=== PATIENT | female | born 1955 | race Caucasian/White ===

== ENCOUNTER 2017-03-10 09:21 | Emergency (ER) | payer SELFPAY ==
[~2017-03-10] VITALS: Ht 160 cm; Wt 45.5 kg
[~2017-03-10 09:21] MED LIST: ASPI81TA11 PO; NAPR-576 PO
[2017-03-10 09:22] VITALS: BP 118/59; PULSE 80; RESP 20; TEMP 98.7; O2SAT 99
[2017-03-10] MEDS ORDERED: BACT800T5 PO ×2 (10:11→10:51)
[2017-03-10] MEDS ORDERED: CEPH-460 PO ×2 (10:11→10:51)
--- NOTE | 2017-03-10 10:12 | PD ---
HPI Chief Complaint: Skin Problem Time Seen by Provider: 09:54 Travel History International Travel<30 days: No Contact w/Intl Traveler<30days: No Traveled to known affect area: No History of Present Illness HPI This is a 61-year-old female who presents to the emergency department having been scratched by her cat 5 days ago on her left forearm with increasing redness and warmth of the arm, constant, moderate severity associated with swelling and pain. She also says she's had some subjective fevers and chills. She has a history of recently diagnosed thyroid disease but denies any history of diabetes. PFSH Past Medical History Arthritis: No Blood Disorders: No Bipolar Disorder: Yes Anxiety: Yes Depression: Yes Heart Rhythm Problems: No Cancer: No Cardiovascular Problems: Yes High Cholesterol: No Chemotherapy: No Chest Pain: Yes Congestive Heart Failure: No Cerebrovascular Accident: No Diabetes: No Diminished Hearing: No Endocrine: No Gastrointestinal Disorders: Yes Genitourinary: No Headaches: Yes (migraine occasionally) Immune Disorder: No Musculoskeletal: Yes (BACK PAIN) Neurologic: No Psychiatric: Yes (NERVOUS BREAKDOWN) Reproductive: Yes (hysterectomy, d&c x2) Respiratory: No Immunizations Current: No Migraines: Yes (occasionally) Radiation Therapy: No Seizures: No Thyroid Disease: No PNEUMOCCOCAL Vaccine (Year): 2 Menopausal: Yes Dilation and Curettage (D&C): Yes Past Surgical History Abdominal Surgery: No Cardiac Surgery: Yes (CARDIAC ABLATION 06/21 ) Ear Surgery: No Endocrine Surgery: No Eye Surgery: No Genitourinary Surgery: No Gynecologic Surgery: Yes (HYSTERECTOMY) Hysterectomy: Yes Oral Surgery: No Thoracic Surgery: No Other Surgery: Yes (HYSTERECTOMY, D & C x2) Social History Alcohol Use: Yes (WINE OCCAS.) Tobacco Use: Yes (CIGARETTES, 1 PPD) Substance Use: No Allergies-Medications (Allergen,Severity, Reaction): Coded Allergies: No Known Allergies (Verified , 08/08/15) Reported Meds & Prescriptions Reported Meds & Active Scripts Active Naproxen 500 Mg Tab 500 Mg PO Q12HR PRN Reported Aspirin EC 81 mg (Aspirin) 81 Mg Tab 81 Mg PO DAILY Review of Systems Except as stated in HPI: all other systems reviewed are Neg Physical Exam Narrative GENERAL:Well appearing, no acute distress SKIN: Small subcentimeter wound on the left dorsal forearm with some clear drainage with surrounding erythema and warmth that extends and ends proximal to the left elbow HEAD: Atraumatic. Normocephalic. EYES: Pupils equal and round. No injection or drainage. ENT: Moist mucous membranes NECK: Trachea midline. CARDIOVASCULAR: Regular rate and rhythm. No murmur appreciated. RESPIRATORY: Clear to auscultation. Breath sounds equal bilaterally. GASTROINTESTINAL: Abdomen soft, non-tender, nondistended. MUSCULOSKELETAL: No obvious deformities. NEUROLOGICAL: Awake and alert. No obvious cranial nerve deficits. Moving all extremities. PSYCHIATRIC: Appropriate mood and affect; insight and judgment normal. Data Data Last Documented VS Vital Signs Date Time Temp Pulse Resp B/P (MAP) Pulse Ox O2 Delivery O2 Flow Rate FiO2 03/10/17 09:22 98.7 80 20 118/59 (78) 99 Room Air MDM Medical Decision Making Medical Screen Exam Complete: Yes Emergency Medical Condition: Yes Differential Diagnosis cellulitis, abscess, sepsis, cat scratch disease Narrative Course This is a 61-year-old female who presents to the emergency department with a cellulitis on her left forearm associated with an area where her cat scratched her. She is nontoxic appearing, has no history of diabetes and has no fever here. I think she is appropriate for outpatient antibiotic therapy. She has no insurance so she'll be put on Keflex and Bactrim. The area of cellulitis was marked and patient was instructed to return to the emergency department in 24-48 hours if her symptoms worsen. Diagnosis Primary Impression: Cat scratch of forearm Qualified Codes: S50.812A - Abrasion of left forearm, initial encounter; W55.03XA - Scratched by cat, initial encounter Patient Instructions: General Instructions Additional Instructions: If you develop fever, increasing redness, warmth, or spreading of your infection , or severe pain return to the emergency department immediately as you may require antibiotics through your IV. Complete your course of antibiotics as prescribed. Med/Other Pt SpecificInfo: Prescription(s) given Scripts Sulfamethoxazole-Trimethoprim (Bactrim DS) 800-160 Mg Tab 1 TAB PO BID for Infection, #20 TAB 0 Refills Prov: Ila Dominguez MD 03/10/17 Cephalexin (Keflex) 500 Mg Cap 500 MG PO Q6H for Infection for 10 Days, #40 CAP 0 Refills Prov: Ila Dominguez MD 03/10/17 Disposition: 01 DISCHARGE HOME Condition: Stable Highet,Ila H. MD Mar 10, 2017 10:11
[2017-03-10] MEDS ORDERED: TRAM50TA PO (10:55)
[2017-03-10 11:00] VITALS: BP 121/79
[2017-03-11] MEDS ORDERED: CLON0.5T PO ×2 (10:10→12:06)
[2017-03-11] MEDS ORDERED: CIPR-9 PO (11:52)
[2017-03-11] MEDS ORDERED: TRAM50TA PO (12:06)
== END 2017-03-10 11:20 | disposition home or self-care (01) ==
LOC: NEPD 09:21
DX: S50.812A Abrasion of left forearm, initial encounter (principal); E07.9 Disorder of thyroid, unspecified; F31.9 Bipolar disorder, unspecified; F41.9 Anxiety disorder, unspecified; F17.210 Nicotine dependence, cigarettes, uncomplicated; W55.03XA Scratched by cat, initial encounter; Z79.82 Long term (current) use of aspirin; Z79.899 Other long term (current) drug therapy
CPT/HCPCS: 99284

== ENCOUNTER 2017-03-10 12:57 | Observation (INO) | payer SELFPAY ==
[~2017-03-10] VITALS: Ht 152.4 cm; Wt 45.5 kg
[~2017-03-10 12:57] MED LIST changes: +BACT800T5 PO; +CEPH-460 PO; +TRAM50TA PO
[2017-03-10 12:58] VITALS: BP 109/59; PULSE 84; RESP 20; TEMP 98; O2SAT 97
[2017-03-10 15:22] VITALS: BP 114/57; PULSE 78; RESP 15; O2SAT 98
[2017-03-10] MEDS ORDERED: clonazePAM 0.5 MG TAB PO ONE ×2 (15:45)
[2017-03-10] MEDS ORDERED: CLINDAMYCIN INJ 600 MG in SODIUM CHLORIDE 0.9% INJ 100 ML IV ONE ×4 (15:45)
[2017-03-10] MEDS ORDERED: SODIUM CHLORID 0.9% 500 ML INJ 500 ML IV ONE ×2 (15:45)
[2017-03-10] MEDS ORDERED: methylPREDNISolone SOD SUCC 125 MG/2 ML VIAL IV PUSH ONE ×2 (15:45)
[2017-03-10 16:05] LABS: AUTOMATED NEUTROPHIL # 17.5 TH/MM3 (1.8-7.7); BASOPHIL % 0.1 % (0.0-2.0); EOSINOPHIL # 0.1 TH/MM3 (0-0.4); EOSINOPHIL % 0.5 % (0.0-4.0); HEMATOCRIT 43.3 % (35.0-46.0); HEMOGLOBIN 14.3 GM/DL (11.6-15.3); LYMPHOCYTE # 1.2 TH/MM3 (1.0-4.8); MEAN CELL VOLUME 86.9 FL (80.0-100.0); MEAN CORPUSCULAR HEMOGLOBIN 28.8 PG (27.0-34.0); MEAN CORPUSCULAR HGB CONC 33.1 % (32.0-36.0); MEAN PLATELET VOLUME 8.8 FL (7.0-11.0); MONO % 2.2 % (0.0-8.0); MONOCYTE # 0.4 TH/MM3 (0-0.9); NEUT % 91.2 % (16.0-70.0); PLATELET COUNT 158 TH/MM3 (150-450); RED BLOOD COUNT 4.99 MIL/MM3 (4.00-5.30); RED CELL DISTRIBUTION WIDTH 13.8 % (11.6-17.2); WHITE BLOOD COUNT 19.1 TH/MM3 (4.0-11.0)
[2017-03-10 16:39] LABS: ALBUMIN 3.9 GM/DL (3.4-5.0); ALT (GPT) 21 U/L (10-53); AST (GOT) 20 U/L (15-37); BICARBONATE 23.1 MEQ/L (21.0-32.0); BLOOD UREA NITROGEN 12 MG/DL (7-18); CALCIUM 9.4 MG/DL (8.5-10.1); CHLORIDE 102 MEQ/L (98-107); CREATININE 0.67 MG/DL (0.50-1.00); GLOMERULAR FILTRATION RATE 90 ML/MIN (>89); GLUCOSE,RANDOM 103 MG/DL (74-106); SODIUM (NA) 136 MEQ/L (136-145)
[2017-03-10 16:42] LABS: ALKALINE PHOSPHATASE 103 U/L (45-117); TOTAL BILIRUBIN ADULT 0.3 MG/DL (0.2-1.0)
[2017-03-10 17:11] VITALS: BP 110/62; PULSE 74; RESP 16; O2SAT 97
--- NOTE | 2017-03-10 17:20 | PD ---
HPI Chief Complaint: Skin Problem Time Seen by Provider: 15:35 Travel History International Travel<30 days: No Contact w/Intl Traveler<30days: No Traveled to known affect area: No History of Present Illness HPI This is a 61-year-old female who I saw earlier today having sustained a cat scratch to her left arm 5 days ago. She's had increasing redness and swelling of the arm since then. Her symptoms of been constant, moderate severity associated with shaking chills and some subjective fevers. Patient went to the drugstore and purchase Bactrim and Keflex which I prescribed to her. She took a dose and then she felt very itchy, lightheaded and dizzy and felt like she was going to pass out. She felt like the redness was extending beyond where we marked when she came into the emergency department so she returned for recheck. PFSH Past Medical History Arthritis: No Blood Disorders: No Bipolar Disorder: Yes Anxiety: Yes Depression: Yes Heart Rhythm Problems: No Cancer: No Cardiovascular Problems: Yes High Cholesterol: No Chemotherapy: No Chest Pain: Yes Congestive Heart Failure: No Cerebrovascular Accident: No Diabetes: No Diminished Hearing: No Endocrine: No Gastrointestinal Disorders: Yes Genitourinary: No Headaches: Yes (migraine occasionally) Hypertension: No Immune Disorder: No Implanted Vascular Access Dvce: No Musculoskeletal: Yes (BACK PAIN) Neurologic: No Psychiatric: Yes (NERVOUS BREAKDOWN) Reproductive: Yes (hysterectomy, d&c x2) Respiratory: No Immunizations Current: No Migraines: Yes (occasionally) Radiation Therapy: No Seizures: No Thyroid Disease: No Tetanus Vaccination: > 5 Years Influenza Vaccination: No PNEUMOCCOCAL Vaccine (Year): 2 ?: Not Menopausal: Yes Dilation and Curettage (D&C): Yes Past Surgical History Abdominal Surgery: No Cardiac Surgery: Yes (CARDIAC ABLATION 06/21 ) Ear Surgery: No Endocrine Surgery: No Eye Surgery: No Genitourinary Surgery: No Gynecologic Surgery: Yes (HYSTERECTOMY) Hysterectomy: Yes Neurologic Surgery: No Oral Surgery: No Thoracic Surgery: No Other Surgery: Yes (HYSTERECTOMY, D & C x2) Social History Alcohol Use: Yes (WINE OCCAS.) Tobacco Use: Yes (CIGARETTES, 1 PPD) Substance Use: No Allergies-Medications (Allergen,Severity, Reaction): Coded Allergies: No Known Allergies (Verified Allergy, Unknown, 03/10/17) Reported Meds & Prescriptions Reported Meds & Active Scripts Active Tramadol (Tramadol HCl) 50 Mg Tab 50 Mg PO Q6H PRN Bactrim DS (Sulfamethoxazole-Trimethoprim) 800-160 Mg Tab 1 Tab PO BID Keflex (Cephalexin) 500 Mg Cap 500 Mg PO Q6H 10 Days Review of Systems Except as stated in HPI: all other systems reviewed are Neg Physical Exam Narrative GENERAL:Well appearing, no acute distress SKIN: Erythema and edema and warmth of the left volar forearm with some streaking and extension of the redness beyond marking from earlier today. HEAD: Atraumatic. Normocephalic. EYES: Pupils equal and round. No injection or drainage. ENT: Moist mucous membranes NECK: Trachea midline. CARDIOVASCULAR: Regular rate and rhythm. No murmur appreciated. RESPIRATORY: Clear to auscultation. Breath sounds equal bilaterally. GASTROINTESTINAL: Abdomen soft, non-tender, nondistended. MUSCULOSKELETAL: No obvious deformities. NEUROLOGICAL: Awake and alert. No obvious cranial nerve deficits. Moving all extremities. PSYCHIATRIC: Appropriate mood and affect; insight and judgment normal. Data Data Last Documented VS Vital Signs Date Time Temp Pulse Resp B/P (MAP) Pulse Ox O2 Delivery O2 Flow Rate FiO2 03/10/17 17:11 74 16 110/62 (78) 97 Room Air 03/10/17 12:58 98.0 Orders Orders ^ Insert Iv (03/10/17 15:35) Complete Blood Count With Diff (03/10/17 15:35) Comprehensive Metabolic Panel (03/10/17 15:35) Methylprednisolone So Succ Inj (Solumedr (03/10/17 15:45) Sodium Chlorid 0.9% 500 Ml Inj (Ns 500 M (03/10/17 15:45) Clindamycin Inj (Cleocin Inj) (03/10/17 15:45) Clonazepam (Klonopin) (03/10/17 15:45) Blood Culture (03/10/17 16:48) Lactic Acid (03/10/17 16:48) Labs Laboratory Tests Test 03/10/17 15:50 03/10/17 17:00 White Blood Count 19.1 TH/MM3 Red Blood Count 4.99 MIL/MM3 Hemoglobin 14.3 GM/DL Hematocrit 43.3 % Mean Corpuscular Volume 86.9 FL Mean Corpuscular Hemoglobin 28.8 PG Mean Corpuscular Hemoglobin Concent 33.1 % Red Cell Distribution Width 13.8 % Platelet Count 158 TH/MM3 Mean Platelet Volume 8.8 FL Neutrophils (%) (Auto) 91.2 % Lymphocytes (%) (Auto) 6.0 % Monocytes (%) (Auto) 2.2 % Eosinophils (%) (Auto) 0.5 % Basophils (%) (Auto) 0.1 % Neutrophils # (Auto) 17.5 TH/MM3 Lymphocytes # (Auto) 1.2 TH/MM3 Monocytes # (Auto) 0.4 TH/MM3 Eosinophils # (Auto) 0.1 TH/MM3 Basophils # (Auto) 0.0 TH/MM3 CBC Comment DIFF FINAL Differential Comment Blood Urea Nitrogen 12 MG/DL Creatinine 0.67 MG/DL Random Glucose 103 MG/DL Total Protein 9.0 GM/DL Albumin 3.9 GM/DL Calcium Level 9.4 MG/DL Alkaline Phosphatase 103 U/L Aspartate Amino Transf (AST/SGOT) 20 U/L Alanine Aminotransferase (ALT/SGPT) 21 U/L Total Bilirubin 0.3 MG/DL Sodium Level 136 MEQ/L Potassium Level 3.4 MEQ/L Chloride Level 102 MEQ/L Carbon Dioxide Level 23.1 MEQ/L Anion Gap 11 MEQ/L Estimat Glomerular Filtration Rate 90 ML/MIN MDM Medical Decision Making Medical Screen Exam Complete: Yes Emergency Medical Condition: Yes Interpretation(s) Afebrile, no tachycardia, normotensive Leukocytosis 91% neutrophils Electrolytes are reassuring Differential Diagnosis Cellulitis, abscess, sepsis Narrative Course This is a 61-year-old female who presents to the emergency department with a cellulitis on her left forearm presents following a cat scratch. Her redness has worsened since this morning and she had an allergic reaction to either Keflex or Bactrim. Here in the emergency department she continued to be itchy. She was given methylprednisolone and fluids. She was also given a dose of clindamycin. Labs demonstrate a marked leukocytosis of 19. Patient will be admitted in observation given the worsening of her symptoms throughout the day. Diagnosis Primary Impression: Cellulitis Qualified Codes: L03.114 - Cellulitis of left upper limb Admitting Information Admitting Physician Requests: Observation Ila Dominguez MD Mar 10, 2017 17:20
[2017-03-10] MEDS ORDERED: diphenhydrAMINE HCL 50 MG/ML VIAL IV PUSH ONE ×2 (17:45)
--- NOTE | 2017-03-10 17:46 | PD ---
Physical Exam Narrative Received sign out from previous team to speak with hospitalist to admit patient. 61yo F with left arm cellulitis s/p being scratched by her cat. I evaluated her after clindamycin and she said that her hands are a little itchy now. Denies any sob, tongue or lip swelling. Lungs are clear. Will give diphenhydramine 25mg IV and reevaluate. I discussed with hospitalist Dr. Barker and accepted to his service. Data Data Last Documented VS Vital Signs Date Time Temp Pulse Resp B/P (MAP) Pulse Ox O2 Delivery O2 Flow Rate FiO2 03/10/17 17:11 74 16 110/62 (78) 97 Room Air 03/10/17 12:58 98.0 Orders Orders ^ Insert Iv (03/10/17 15:35) Complete Blood Count With Diff (03/10/17 15:35) Comprehensive Metabolic Panel (03/10/17 15:35) Methylprednisolone So Succ Inj (Solumedr (03/10/17 15:45) Sodium Chlorid 0.9% 500 Ml Inj (Ns 500 M (03/10/17 15:45) Clindamycin Inj (Cleocin Inj) (03/10/17 15:45) Clonazepam (Klonopin) (03/10/17 15:45) Blood Culture (03/10/17 16:48) Lactic Acid (03/10/17 16:48) Diphenhydramine Inj (Benadryl Inj) (03/10/17 17:45) Labs Laboratory Tests Test 03/10/17 15:50 03/10/17 17:00 White Blood Count 19.1 TH/MM3 Red Blood Count 4.99 MIL/MM3 Hemoglobin 14.3 GM/DL Hematocrit 43.3 % Mean Corpuscular Volume 86.9 FL Mean Corpuscular Hemoglobin 28.8 PG Mean Corpuscular Hemoglobin Concent 33.1 % Red Cell Distribution Width 13.8 % Platelet Count 158 TH/MM3 Mean Platelet Volume 8.8 FL Neutrophils (%) (Auto) 91.2 % Lymphocytes (%) (Auto) 6.0 % Monocytes (%) (Auto) 2.2 % Eosinophils (%) (Auto) 0.5 % Basophils (%) (Auto) 0.1 % Neutrophils # (Auto) 17.5 TH/MM3 Lymphocytes # (Auto) 1.2 TH/MM3 Monocytes # (Auto) 0.4 TH/MM3 Eosinophils # (Auto) 0.1 TH/MM3 Basophils # (Auto) 0.0 TH/MM3 CBC Comment DIFF FINAL Differential Comment Blood Urea Nitrogen 12 MG/DL Creatinine 0.67 MG/DL Random Glucose 103 MG/DL Total Protein 9.0 GM/DL Albumin 3.9 GM/DL Calcium Level 9.4 MG/DL Alkaline Phosphatase 103 U/L Aspartate Amino Transf (AST/SGOT) 20 U/L Alanine Aminotransferase (ALT/SGPT) 21 U/L Total Bilirubin 0.3 MG/DL Sodium Level 136 MEQ/L Potassium Level 3.4 MEQ/L Chloride Level 102 MEQ/L Carbon Dioxide Level 23.1 MEQ/L Anion Gap 11 MEQ/L Estimat Glomerular Filtration Rate 90 ML/MIN Lactic Acid Level 1.4 mmol/L MDM Supervised Visit with [facility]: No Diagnosis Primary Impression: Cellulitis Qualified Codes: L03.114 - Cellulitis of left upper limb Admitting Information Admitting Physician Requests: Observation Khalida Nielson DO Mar 10, 2017 17:46
[2017-03-10] MEDS ORDERED: metroNIDAZOLE 500 MG INJ 100 ML IV SCH ×4 (18:15→20:00)
[2017-03-10] MEDS ORDERED: CIPROFLOXACIN 400 MG PREMIX 200 ML IV SCH ×4 (18:15→20:00)
[2017-03-10] MEDS ORDERED: ACETAMINOPHEN 325 MG TAB PO PRN ×2 (18:15)
--- NOTE | 2017-03-10 18:45 | HHI.HP ---
[facility] Service [facility] Primary Care Physician No Primary Care Physician Admission Diagnosis Cellulitis Diagnoses: (1) Cellulitis Diagnosis: Principal Chief Complaint: infection of the left upper extremity Travel History International Travel<30 Days: No Contact w/Intl Traveler <30 Da: No Traveled to Known Affected Are: No History of Present Illness patient is a 61 y/o female who presented to ER with redness and pain of the left forearm. she says that she was cutting her cat's nails a few days ago when she sustained a cat-scratch. she noticed some redness and pain over the left forearm which gradually got worse over the past couple of days. she denies any fever but had some chills. she came to ER and was prescribed bactrim and keflex and was discharged. however she says that after taking the antibiotics she started to have some itching over the legs and it seemed that the erythema over the left forearm was getting worse which made her to come to ER again. she says that she's lost some niranjan recently and has on and off palpitations. she says that ' she had a problem with her thyroid' and now ' she's trying to take care of it'. Review of Systems Constitutional: DENIES: Fever, Weight loss, Chills, Night Sweats Eyes: DENIES: Blurred vision, Diplopia, Vision loss, Double Vision Ears, nose, mouth, throat: DENIES: Tinnitus, Vertigo, Throat pain, Epistaxis Respiratory: DENIES: Apneas, Cough, Snoring, Wheezing, Hemoptysis, Sputum production, Shortness of breath Cardiovascular: DENIES: Chest pain, Palpitations, Syncope, Dyspnea on Exertion , PND, Lower Extremity Edema, Orthopnea, Claudication Gastrointestinal: DENIES: Abdominal pain, Black stools, Bloody stools, Constipation, Diarrhea, Nausea, Vomiting, Difficulty Swallowing, Anorexia Genitourinary: DENIES: Urinary frequency, Urgency, Hematuria, Dysuria Musculoskeletal: DENIES: Joint pain, Muscle aches, Stiffness, Joint Swelling Integumentary: DENIES: Rash Neurologic: DENIES: Abnormal gait, Headache, Localized weakness, Paresthesias, Seizures, Speech Problems, Tremor, Poor Balance Psychiatric: DENIES: Anxiety, Confusion, Mood changes, Depression, Hallucinations, Agitation, Suicidal Ideation, Homicidal Ideation, Delusions pain and redness over the left forearm. Past Family Social History Past Medical History endometriosis. Past Surgical History hysterectomy Reported Medications klonopin. Allergies: Coded Allergies: No Known Allergies (Verified Allergy, Unknown, 03/10/17) Active Ordered Medications Current Medications Methylprednisolone Sodium Succinate (SoluMEDROL INJ) 125 mg ONCE ONCE IV PUSH Last administered on 03/10/17 15:57; Start 03/10/17 at 15:45; Stop 03/10/17 at 15:46; Status DC Sodium Chloride 500 ml @ 500 mls/hr BOLUS ONCE IV Last administered on 15:57; Start 03/10/17 at 15:45; Stop 03/10/17 at 16:44; Status DC Clindamycin Phosphate 600 mg/ Sodium Chloride 104 ml @ 208 mls/hr ONCE ONCE IV Last administered on 03/10/17 15:57; Start 03/10/17 at 15:45; Stop at 16:14; Status DC Clonazepam (KlonoPIN) 0.25 mg ONCE ONCE PO Last administered on 03/10/17 15: 58; Start 03/10/17 at 15:45; Stop 03/10/17 at 15:46; Status DC Diphenhydramine HCl (Benadryl Inj) 25 mg ONCE ONCE IV PUSH Last administered on 03/10/17 17:52; Start 03/10/17 at 17:45; Stop 03/10/17 at 17:46; Status DC Social History smokes a pack a day. Physical Exam Vital Signs Vital Signs Date Time Temp Pulse Resp B/P (MAP) Pulse Ox O2 Delivery O2 Flow Rate FiO2 03/10/17 17:11 74 16 110/62 (78) 97 Room Air 03/10/17 15:22 78 15 114/57 (76) 98 Room Air 03/10/17 13:03 03/10/17 12:58 98.0 84 20 109/59 (76) 97 Room Air Physical Exam GENERAL: This is a well-nourished, well-developed patient, in no apparent distress. SKIN: redness over the left forearm. HEAD: Atraumatic. Normocephalic. No temporal or scalp tenderness. EYES: Pupils equal round and reactive. Extraocular motions intact. No scleral icterus. No injection or drainage. ENT: Nose without bleeding, purulent drainage or septal hematoma. Throat without erythema, tonsillar hypertrophy or exudate. Uvula midline. Airway patent. NECK: Trachea midline. No JVD or lymphadenopathy. Supple, nontender, no meningeal signs. CARDIOVASCULAR: Regular rate and rhythm without murmurs, gallops, or rubs. RESPIRATORY: Clear to auscultation. Breath sounds equal bilaterally. No wheezes , rales, or rhonchi. GASTROINTESTINAL: Abdomen soft, non-tender, nondistended. No hepato-splenomegaly , or palpable masses. No guarding. MUSCULOSKELETAL: Extremities without clubbing, cyanosis, or edema. No joint tenderness, effusion, or edema noted. No calf tenderness. Negative Homans sign bilaterally. NEUROLOGICAL: Awake and alert. Cranial nerves II through XII intact. Motor and sensory grossly within normal limits. Five out of 5 muscle strength in all muscle groups. Normal speech. Laboratory Laboratory Tests Test 03/10/17 15:50 03/10/17 17:00 White Blood Count 19.1 Red Blood Count 4.99 Hemoglobin 14.3 Hematocrit 43.3 Mean Corpuscular Volume 86.9 Mean Corpuscular Hemoglobin 28.8 Mean Corpuscular Hemoglobin Concent 33.1 Red Cell Distribution Width 13.8 Platelet Count 158 Mean Platelet Volume 8.8 Neutrophils (%) (Auto) 91.2 Lymphocytes (%) (Auto) 6.0 Monocytes (%) (Auto) 2.2 Eosinophils (%) (Auto) 0.5 Basophils (%) (Auto) 0.1 Neutrophils # (Auto) 17.5 Lymphocytes # (Auto) 1.2 Monocytes # (Auto) 0.4 Eosinophils # (Auto) 0.1 Basophils # (Auto) 0.0 CBC Comment DIFF FINAL Differential Comment Blood Urea Nitrogen 12 Creatinine 0.67 Random Glucose 103 Total Protein 9.0 Albumin 3.9 Calcium Level 9.4 Alkaline Phosphatase 103 Aspartate Amino Transf (AST/SGOT) 20 Alanine Aminotransferase (ALT/SGPT) 21 Total Bilirubin 0.3 Sodium Level 136 Potassium Level 3.4 Chloride Level 102 Carbon Dioxide Level 23.1 Anion Gap 11 Estimat Glomerular Filtration Rate 90 Lactic Acid Level 1.4 Date/Time Source Procedure Growth Status 03/10/17 17:05 Blood Peripheral Aerobic Blood Culture Pending Received 03/10/17 17:05 Blood Peripheral Anaerobic Blood Culture Pending Received Result Diagram: 03/10/17 1550 03/10/17 1550 Caprini VTE Risk Assessment Caprini VTE Risk Assessment: Mod/High Risk (score >= 2) Caprini Risk Assessment Model Point Value = 1 Point Value = 2 Point Value = 3 Point Value = 5 Age 41-60 Minor surgery BMI > 25 kg/m2 Swollen legs Varicose veins or History of unexplained or recurrent spontaneous Oral contraceptives or hormone replacement Sepsis (< 1 month) Serious lung disease, including pneumonia (< 1 month) Abnormal pulmonary function Acute myocardial infarction Congestive heart failure (< 1 month) History of inflammatory bowel disease Medical patient at bed rest Age 61-74 Arthroscopic surgery Major open surgery (> 45 min) Laparoscopic surgery (> 45 min) Malignancy Confined to bed (> 72 hours) Immobilizing plaster cast Central venous access Age >= 75 History of VTE Family history of VTE Factor V Leiden Prothrombin [id number] Lupus anticoagulant Anticardiolipin antibodies Elevated serum homocysteine Heparin-induced thrombocytopenia Other congenital or acquired thrombophilia Stroke (< 1 month) Elective arthroplasty Hip, pelvis, or leg fracture Acute spinal cord injury (< 1 month) Prophylaxis Regimen Total Risk Factor Score Risk Level Prophylaxis Regimen 0-1 Low Early ambulation 2 Moderate Order ONE of the following: *Sequential Compression Device (SCD) *Heparin 5000 units SQ BID 3-4 Higher Order ONE of the following medications: *Heparin 5000 units SQ TID *Enoxaparin/Lovenox 40 mg SQ daily (WT < 150 kg, CrCl > 30 mL/min) *Enoxaparin/Lovenox 30 mg SQ daily (WT < 150 kg, CrCl > 10-29 mL/min) *Enoxaparin/Lovenox 30 mg SQ BID (WT < 150 kg, CrCl > 30 mL/min) AND/OR *Sequential Compression Device (SCD) 5 or more Highest Order ONE of the following medications: *Heparin 5000 units SQ TID (Preferred with Epidurals) *Enoxaparin/Lovenox 40 mg SQ daily (WT < 150 kg, CrCl > 30 mL/min) *Enoxaparin/Lovenox 30 mg SQ daily (WT < 150 kg, CrCl > 10-29 mL/min) *Enoxaparin/Lovenox 30 mg SQ BID (WT < 150 kg, CrCl > 30 mL/min) AND *Sequential Compression Device (SCD) Assessment and Plan Assessment and Plan A/P - cellulitis of the left forearm- caused by cat-scratch it seems that the patient had an allergic reaction to bactrim and/or keflex/ clindamycin earlier today. itching has improved after the dose of steroid. continue with benadryl as needed. will switch to IV Cipro and Flagyl and monitor the response. keep the left leg elevated. -possible hyperthyroidism- advised the patient to have a f/u as outpatient. ( patient had a low TSH as outpatient with reported weight loss/ palpitations) -DVT prophylaxis with subq Lovenox Discussed Condition With ER physician and the patient. Problem Qualifiers (1) Cellulitis: Qualified Codes: L03.114 - Cellulitis of left upper limb Navid Padilla MD Mar 10, 2017 18:45
[2017-03-10] MEDS ORDERED: diphenhydrAMINE HCL 25 MG CAP PO PRN ×2 (19:00)
[2017-03-10 19:24] VITALS: BP 121/60
[2017-03-10] MEDS ORDERED: NICOTINE 21 MG/24 HR PATCH T-DERMAL SCH ×2 (20:00)
[2017-03-10] MEDS ORDERED: POTASSIUM CHLORIDE 10 MEQ CONTROLLED RELEASE TAB PO ONE ×4 (20:00→22:00)
[2017-03-10] MEDS ORDERED: ENOXAPARIN SODIUM 40 MG/0.4 ML SYRINGE SQ SCH ×4 (20:00→22:00)
[2017-03-10 20:50] VITALS: BP 106/60; PULSE 89; RESP 17; TEMP 98.5; O2SAT 96
[2017-03-10] MEDS: NICOTINE 21 MG/24 HR PATCH T-DERMAL SCH ×2 (22:00)
[2017-03-10] MEDS ORDERED: IBUPROFEN 400 MG TAB PO PRN ×2 (22:30)
[2017-03-10] MEDS: CIPROFLOXACIN 400 MG PREMIX 200 ML IV SCH ×2 (22:34)
[2017-03-10] MEDS: metroNIDAZOLE 500 MG INJ 100 ML IV SCH ×2 (22:41)
[2017-03-10 23:18] VITALS: BP 111/69; PULSE 87; RESP 16; TEMP 98.5; O2SAT 97
[2017-03-11] MEDS: metroNIDAZOLE 500 MG INJ 100 ML IV SCH ×2 (06:05)
[2017-03-11 06:29] LABS: HEMATOCRIT 36.6 % (35.0-46.0); HEMOGLOBIN 12.3 GM/DL (11.6-15.3); LYMPH % 7.8 % (9.0-44.0); LYMPHOCYTE # 1.1 TH/MM3 (1.0-4.8); MEAN CELL VOLUME 86.6 FL (80.0-100.0); MEAN CORPUSCULAR HGB CONC 33.5 % (32.0-36.0); MEAN PLATELET VOLUME 8.7 FL (7.0-11.0); MONO % 1.5 % (0.0-8.0); MONOCYTE # 0.2 TH/MM3 (0-0.9); NEUT % 90.7 % (16.0-70.0); PLATELET COUNT 163 TH/MM3 (150-450); RED BLOOD COUNT 4.22 MIL/MM3 (4.00-5.30); WHITE BLOOD COUNT 14.4 TH/MM3 (4.0-11.0)
[2017-03-11 08:17] VITALS: BP 110/59; PULSE 61; RESP 23; TEMP 98; O2SAT 98
[2017-03-11] MEDS ORDERED: REMOVE OLD PATCH T-DERMAL SCH ×2 (09:00)
[2017-03-11] MEDS ORDERED: CLON0.5T PO ×4 (10:10→12:06)
[2017-03-11] MEDS: NICOTINE 21 MG/24 HR PATCH T-DERMAL SCH ×2 (10:16)
[2017-03-11] MEDS: CIPROFLOXACIN 400 MG PREMIX 200 ML IV SCH ×2 (10:17)
[2017-03-11] MEDS ORDERED: clonazePAM 0.5 MG TAB PO PRN ×2 (11:15)
[2017-03-11 11:39] VITALS: RESP 20
[2017-03-11] MEDS ORDERED: CIPR-9 PO ×2 (11:52)
[2017-03-11] MEDS ORDERED: TRAM50TA PO ×2 (12:06)
--- NOTE | 2017-03-11 12:14 | HHI.PR ---
Subjective Remarks Follow-up for left upper extremity cellulitis due to cat scratch. Patient is doing very well. Denies any fever or chills. Erythema on her left upper extremity is much improved. She wants to go home and follow up with her primary care physician. Objective Vitals Vital Signs Date Time Temp Pulse Resp B/P (MAP) Pulse Ox O2 Delivery O2 Flow Rate FiO2 03/11/17 11:39 20 03/11/17 08:17 98.0 61 23 110/59 (76) 98 03/10/17 23:18 98.5 87 16 111/69 (83) 97 03/10/17 20:50 98.5 89 17 106/60 (75) 96 03/10/17 19:24 75 16 121/60 (80) 99 03/10/17 17:11 74 16 110/62 (78) 97 Room Air 03/10/17 15:22 78 15 114/57 (76) 98 Room Air 03/10/17 13:03 03/10/17 12:58 98.0 84 20 109/59 (76) 97 Room Air I/O 03/10/17 03/10/17 03/10/17 03/11/17 03/11/17 03/11/17 07:00 15:00 23:00 07:00 15:00 23:00 Intake Total 604 ml 300 ml Balance 604 ml 300 ml Intake IV Total 604 ml 300 ml Result Diagram: 03/11/17 0603 03/10/17 1550 Objective Remarks GENERAL: Alert, oriented 3, NAD. SKIN: Warm and dry. There is a small lesion on her forearm on the left side. Erythema very mild. HEAD: Normocephalic. EYES: No scleral icterus. No injection or drainage. NECK: Supple, trachea midline. No JVD or lymphadenopathy. CARDIOVASCULAR: Regular rate and rhythm without murmurs, gallops, or rubs. RESPIRATORY: Breath sounds equal bilaterally. No accessory muscle use. GASTROINTESTINAL: Abdomen soft, non-tender, nondistended. MUSCULOSKELETAL: No cyanosis, or edema. BACK: Nontender without obvious deformity. No CVA tenderness. Procedures None A/P Problem List: (1) Cellulitis ICD Code: L03.90 - Cellulitis, unspecified Status: Acute Assessment and Plan Ms. Anguiano is a 61-year-old female who presented to the emergency department due to redness and pain of her left forearm. She was cutting her cats male and sustained a cat scratch. - Cellulitis due to cat scratch - Patient was started on Cipro and Flagyl. - She improved overnight. - We'll discharge her on ciprofloxacin 500 mg twice a day for 10 days - Patient will follow-up with her primary care physician. - Anxiety - positive in 0.5 mg twice a day when necessary for anxiety Full code Discharge patient to home Condition on discharge: Improved Regular Diet as tolerated Ad Ayde activity Rx written: - Lorazepam 0.5 mg twice a day for anxiety when necessary - Tramadol 50 mg every 6 hours when necessary - Ciprofloxacin 500 mg twice a day for 10 days. Follow-up with primary care physician within one week. Problem Qualifiers (1) Cellulitis: Qualified Codes: L03.114 - Cellulitis of left upper limb Love Albarado DO Mar 11, 2017 12:14 pm
== END 2017-03-11 13:14 | disposition home or self-care (01) ==
LOC: NEPD 12:57 → NEDA 17:47 → NEPHCDU 19:45
PROVIDERS: ADMIT Hospitalist; ATTEND Hospitalist
DX: L03.114 Cellulitis of left upper limb (principal); T37.0X5A Adverse effect of sulfonamides, initial encounter; F41.9 Anxiety disorder, unspecified; F17.210 Nicotine dependence, cigarettes, uncomplicated; W55.03XA Scratched by cat, initial encounter
CPT/HCPCS: 80053; 83605; 85025; 87040; 96365; 96366; 96367; 96368; 96372; 96375; 99285; G0378; J0744; J1200; J1650; J2930; J7040